=== PATIENT | female | born 1950 | race Caucasian/White ===

== ENCOUNTER 2022-04-30 08:12 | Day surgery (SDC) | payer MEDICARE, OTHER ==
[~2022-04-30] VITALS: Ht 154.9 cm; Wt 57.5 kg
[~2022-04-30 08:12] MED LIST: LEVSOD100 PO
[2022-04-30] MEDS ORDERED: CLOBETASOL PROP59 ML (08:46)
[2022-04-30] MEDS ORDERED: CALCIUM 600 +1 EA11 (08:46)
[2022-04-30] MEDS ORDERED: Aspir 8181 MG (08:46)
[2022-04-30] MEDS ORDERED: ESOM20 (08:47)
--- NOTE | 2022-04-30 12:20 | NUR ---
04/30/22 [id number] MAYO NOTIFIED THAT LEFT WRIST DRESSING WITH FRESH BRIGHT RED BLOOD THRU DRESSING. ORDERS WERE GIVEN TO REINFORCE DRESSING & HOLD PRESSURE. PRESSURE HELD & SUPER FLUFFS X4 & ABD. APPLIED & NEW DELFINO WRAP APPLIED. LEFT ARM UP ON PILLOW. APPROX 2IN BY 2IN OF BRIGHT RED BLOOD ON DRESSING OBSERVED.
== END 2022-04-30 14:05 | disposition home or self-care (01) ==
LOC: ORSCSDS 08:12
PROVIDERS: Orthopaedic Surgery
PROC: 0PSJ04Z Reposition Left Radius with Internal Fixation Device, Open Approach (ICD-10-PCS; principal; 2022-04-30 09:30)
DX: S52.502A Unspecified fracture of the lower end of left radius, initial encounter for closed fracture (principal); E03.9 Hypothyroidism, unspecified; Z87.891 Personal history of nicotine dependence; K21.9 Gastro-esophageal reflux disease without esophagitis; Z79.899 Other long term (current) drug therapy; Z79.82 Long term (current) use of aspirin
CPT/HCPCS: A9270; C1713; J0690; J1100; J1885; J2250; J2405; J2704; J2795; J3010